=== PATIENT | male | born 1990 | race Caucasian/White ===

== ENCOUNTER 2017-09-01 12:42 | Emergency (ER) | payer BC, OTHER ==
[~2017-09-01] VITALS: Ht 182.9 cm; Wt 91.0 kg
[~2017-09-01 12:42] MED LIST: Z.0.NO CURRENT MEDS
[2017-09-01 12:48] VITALS: BP 176/73; PULSE 69; RESP 18; TEMP 98.6; O2SAT 97
--- NOTE | 2017-09-01 13:03 | PD ---
HPI Chief Complaint: Fall Time Seen by Provider: 12:45 Travel History International Travel<30 days: No Contact w/Intl Traveler<30days: No Traveled to known affect area: No History of Present Illness HPI 26-year-old male the presents to the ED for evaluation of fall from 8 feet. 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 Patient injured his right back. Ambulance was called and was brought here in backboard and cervical collar. He denies hitting his head or losing consciousness. No chest pain or shortness of breath but he does state that laughing and taking deep breaths causes pain on his back. Patient points to the right flank as they were most pain. Per patient the pain is 8 out of 10. No previous injuries. No back problems in the past. No back surgeries. No numbness, drooling, weakness. Denies take any blood thinners or any medications of any kind. Has no allergies to medication. Able to move the upper and lower extremities with no pain. Per patient the pain gets significant when he moves. No urinary or bowel movement issues. PFSH Past Medical History Medical History: Denies Significant Hx Immunizations Current: Yes Tetanus Vaccination: > 5 Years Past Surgical History Oral Surgery: Yes Social History Alcohol Use: Yes Tobacco Use: Yes Substance Use: No Allergies-Medications (Allergen,Severity, Reaction): Coded Allergies: No Known Allergies (Verified Allergy, Mild, 09/01/17) Reported Meds & Prescriptions Reported Meds & Active Scripts Active Diclofenac Sodium DR (Diclofenac Sodium) 75 Mg Tabdr 75 Mg PO BID PRN Robaxin (Methocarbamol) 500 Mg Tab 500 Mg PO TID Review of Systems Except as stated in HPI: all other systems reviewed are Neg Physical Exam Narrative GENERAL: SKIN: Warm and dry. HEAD: Atraumatic. Normocephalic. EYES: Pupils equal and round. No scleral icterus. No injection or drainage. ENT: No nasal bleeding or discharge. Mucous membranes pink and moist. Tongue is midline. No uvula deviation. NECK: Trachea midline. No JVD. CARDIOVASCULAR: Regular rate and rhythm. No murmurs, S3, S4. RESPIRATORY: No accessory muscle use. Clear to auscultation. Breath sounds equal bilaterally. GASTROINTESTINAL: Abdomen soft, non-tender, nondistended. Hepatic and splenic margins not palpable. MUSCULOSKELETAL: Extremities without clubbing, cyanosis, or edema. No obvious deformities. Full range of motion of the upper and lower extremities bilaterally with no pain. Straight leg test negative bilaterally. Patient does have reproducible pain on the musculature of the right flank around the CVA area. No obvious lumbar, thoracic, cervical spine tenderness to palpation. No obvious deformity noted on exam. No scapular pain. No hip pain. No ankle or knee pain noted. No obvious deformities noted at this time. Good pulses. No obvious lacerations noted. NEUROLOGICAL: Awake and alert. No obvious cranial nerve deficits. Motor grossly within normal limits. Five out of 5 muscle strength in the arms and legs. Normal speech. PSYCHIATRIC: Appropriate mood and affect; insight and judgment normal. Data Data Last Documented VS Vital Signs Date Time Temp Pulse Resp B/P (MAP) Pulse Ox O2 Delivery O2 Flow Rate FiO2 09/01/17 12:48 98.6 69 18 176/73 (107) [address] Thorax/ Chest W Iv Contrast (09/01/17 12:50) Ct Abd/Pel W Iv Contrast(Rout) (09/01/17 12:50) Ct Cerv Spine W/O Contrast (09/01/17 12:50) Basic Metabolic Panel (Bmp) (09/01/17 12:50) Iv Access Insert/Monitor (09/01/17 12:50) Ct Thor Spine W Iv Contrast (09/01/17 12:50) Morphine Inj (Morphine Inj) (09/01/17 14:30) Ondansetron Odt (Zofran Odt) (09/01/17 14:30) Iohexol 350 Inj (Omnipaque 350 Inj) (09/01/17 14:20) Ketorolac Inj (Toradol Inj) (09/01/17 14:45) Methocarbamol (Robaxin) (09/01/17 14:45) Remove Cervical Collar (09/01/17 14:56) Splint Or Brace Apply/Monitor (09/01/17 15:05) Ed Discharge Order (09/01/17 15:29) Labs Laboratory Tests Test 09/01/17 13:02 Blood Urea Nitrogen 14 MG/DL Creatinine 1.16 MG/DL Random Glucose 100 MG/DL Calcium Level 9.3 MG/DL Sodium Level 139 MEQ/L Potassium Level 4.3 MEQ/L Chloride Level 106 MEQ/L Carbon Dioxide Level 25.9 MEQ/L Anion Gap 7 MEQ/L Estimat Glomerular Filtration Rate 76 ML/MIN MDM Medical Decision Making Medical Screen Exam Complete: Yes Emergency Medical Condition: Yes Medical Record Reviewed: Yes Interpretation(s) Last Impressions Thoracic Spine CT 09/01/171249 Signed Impressions: CONCLUSION: No acute abnormality is seen. Chest CT 09/01/171249 Signed Impressions: CONCLUSION: Negative CT examination the chest. Cervical Spine CT 09/01/171249 Signed Impressions: CONCLUSION: Negative cervical spine CT examination. Abdomen/Pelvis CT 09/01/171249 Signed Impressions: CONCLUSION: 1. Mildly displaced fractures of the transverse processes on the right side at L2, L3 and L4. 2. No free fluid identified within the abdomen or pelvis. The solid organs of the abdomen are grossly intact. Differential Diagnosis Fall versus muscle strain versus muscle spasm versus contusion versus fracture versus internal injury Narrative Course 26-year-old male that presents to the ED for evaluation of fall. Patient was properly examined and was found to have signs and symptoms consistent with fall. Imaging was ordered. Imaging showed L2-L3 and L4 transverse processes fractures. I spoke with Dr. Negron over the phone who evaluated the imaging and recommends brace. He actually called me back and stated that he noticed a deformity of the pars of L5 and recommended that we call radiology to see if this is old or new. I spoke with radiology and they believe that this is likely old but they cannot completely rule out that is not new due to the new injuries the patient has. Because there is uncertainty patient will be put on the TLSO I will have to follow-up outpatient with neurosurgery. This is Worker' s Comp. I fill out the paperwork for the Worker's Comp. Patient was told that he will have to follow-up closely with the neurosurgeon as well as his employmed. Follow-up with PCP. See ED if worsening symptoms. I have offered pain medication to the patient but he declines narcotics here in the ED. My attending Dr Cross evaluated the patient and agrees with discharge. This was discussed with family who agree with this. Diagnosis Primary Impression: Multiple transverse process fractures Additional Impression: Fall Qualified Codes: W19.XXXA - Unspecified fall, initial encounter Referrals: Francisco Negron MD Patient Instructions: General Instructions Departure Forms: Tests/Procedures, Work Release Enter return to work date: Sep 29, 2017 Additional Instructions: Take medications as prescribed. Follow-up with PCP. See ED for any worsening symptoms. Do not drink or drive while taking pain medication. Apply ice or heat as needed for pain Med/Other Pt SpecificInfo: Prescription(s) given Scripts Diclofenac Sodium DR (Diclofenac Sodium DR) 75 Mg Tabdr 75 MG PO BID Y for PAIN SCALE 1 TO 10, #30 TAB 0 Refills Prov: Karly Cross MD 09/01/17 Methocarbamol (Robaxin) 500 Mg Tab 500 MG PO TID for Muscle Spasm, #20 TAB 0 Refills Prov: Karly Cross MD 09/01/17 Disposition: 01 DISCHARGE HOME Condition: Stable Niko Boyle Sep 01, 2017 13:03
--- NOTE | 2017-09-01 13:11 | PD ---
Physical Exam Date Seen by Provider: Sep 01, 2017 Narrative This patient presents to us via [facility] following a fall. He fell approximately 8 feet. He was working in an attic. He struck his back on a [address] He comes in complaining with pain in that area. He is neurologically intact. Data Data Last Documented VS Vital Signs Date Time Temp Pulse Resp B/P (MAP) Pulse Ox O2 Delivery O2 Flow Rate FiO2 09/01/17 12:48 98.6 69 18 176/73 (107) [address] Thorax/ Chest W Iv Contrast (09/01/17 12:50) Ct Abd/Pel W Iv Contrast(Rout) (09/01/17 12:50) Ct Cerv Spine W/O Contrast (09/01/17 12:50) Basic Metabolic Panel (Bmp) (09/01/17 12:50) Iv Access Insert/Monitor (09/01/17 12:50) Ct Thor Spine W Iv Contrast (09/01/17 12:50) MDM Supervised Visit with KALIN: Yes Narrative Course I, Dr. Cross, have reviewed the advance practice practitioner's documentation and am in agreement, met with the patient face to face, made the diagnosis, and the medical decision making was done by me. *My assessment and Findings: Pleasant gentleman who does not appear to be in any acute distress at this time. He is lying flat on the stretcher. See Nydia Tinsley note for a more detailed H&P, final diagnosis and disposition Scripts No Active Prescriptions or Reported Meds Karly Cross MD Sep 01, 2017 13:11
[2017-09-01 13:46] LABS: BICARBONATE 25.9 MEQ/L (21.0-32.0); CALCIUM 9.3 MG/DL (8.5-10.1); CREATININE 1.16 MG/DL (0.60-1.30)
[2017-09-01] MEDS ORDERED: IOHEXOL 350 MG/ML 10 ML VIAL (for RAD DIAG) IVCONTRAST ONE (14:20)
[2017-09-01] MEDS ORDERED: MORPHINE SULFATE 4 MG/ML INJ IV PUSH ONE (14:30)
[2017-09-01] MEDS ORDERED: ONDANSETRON ODT 4 MG TAB PO ONE (14:30)
--- NOTE | 2017-09-01 14:42 | RADRPT ---
EXAM DATE: 09/01/2017 2:15 PM EDT AGE/SEX: 26 years / Male INDICATIONS: Fall from eight feet. CLINICAL DATA: This is the patient's initial encounter. Patient reports that signs and symptoms have been present for 1 day and indicates a pain score of 5/10. MEDICAL/SURGICAL HISTORY: None. None. RADIATION DOSE: 19.72 CTDI (mGy) COMPARISON: No prior exams available for comparison. TECHNIQUE: Contiguous axial images were obtained using helical multirow detector technique. The vol umetric data was post-processed with multiplanar reconstruction in oblique axial, sagittal, and coron al planes. Using automated exposure control and adjustment of the mA and/or kV according to patient s ize, radiation dose was kept as low as reasonably achievable to obtain optimal diagnostic quality marcel ges. DICOM format image data is available electronically for review and comparison. FINDINGS: Vertebrae: Normal vertebral body height. Alignment: Normal. No subluxation. C2-3: The bony spinal canal is normal in size. No evidence of disc bulge or herniation. The neural foramina are bilaterally patent. C3-4: The bony spinal canal is normal in size. No evidence of disc bulge or herniation. The neural foramina are bilaterally patent. C4-5: The bony spinal canal is normal in size. No evidence of disc bulge or herniation. The neural foramina are bilaterally patent. C5-6: The bony spinal canal is normal in size. No evidence of disc bulge or herniation. The neural foramina are bilaterally patent. C6-7: The bony spinal canal is normal in size. No evidence of disc bulge or herniation. The neural foramina are bilaterally patent. C7-T1: The bony spinal canal is normal in size. No evidence of disc bulge or herniation. The neura l foramina are bilaterally patent. CONCLUSION: Negative cervical spine CT examination. Electronically signed by: Sincere Galindo MD 09/01/2017 2:41 PM EDT
--- NOTE | 2017-09-01 14:44 | RADRPT ---
EXAM DATE: 09/01/2017 2:27 PM EDT AGE/SEX: 26 years / Male INDICATIONS: Fall from eight feet. CLINICAL DATA: This is the patient's initial encounter. Patient reports that signs and symptoms have been present for 1 day and indicates a pain score of 4/10. MEDICAL/SURGICAL HISTORY: None. None. RADIATION DOSE: 10.09 CTDI (mGy) ; Combined studies COMPARISON: No prior exams available for comparison. TECHNIQUE: Multiple contiguous axial images were obtained through the chest during bolus infusion of 96 ml Omnipaque 350 (iohexol) nonionic water-soluble contrast as a cumulative dose for multiple exa ms. Images were obtained in suspended respiration using multiple row detector helical technique. U sing automated exposure control and adjustment of the mA and/or kV according to patient size, radiati on dose was kept as low as reasonably achievable to obtain optimal diagnostic quality images. DICOM format image data is available electronically for review and comparison. FINDINGS: Lungs: The lungs are symmetrically aerated. No infiltrates or nodular densities are seen. Mediastinum: There is good visualization of the great vessels of the middle mediastinum. No evidenc e of mediastinal or hilar adenopathy/mass. Pleurae: No evidence of focal thickening or pleural effusion. Axillae: Unremarkable. Bony Structures: Unremarkable. Miscellaneous: The examination was extended to include the upper abdomen, and both adrenal glands ar e normal in size and configuration. CONCLUSION: Negative CT examination the chest. Electronically signed by: Sincere Galindo MD 09/01/2017 2:42 PM EDT
[2017-09-01] MEDS ORDERED: KETOROLAC TROMETHAMINE 30 MG/ML (IVP) VIAL IV PUSH ONE (14:45)
[2017-09-01] MEDS ORDERED: METHOCARBAMOL 500 MG TAB PO ONE (14:45)
--- NOTE | 2017-09-01 15:00 | RADRPT ---
EXAM DATE: 09/01/2017 2:47 PM EDT AGE/SEX: 26 years / Male INDICATIONS: Fall from eight feet. CLINICAL DATA: This is the patient's initial encounter. Patient reports that signs and symptoms have been present for 1 day and indicates a pain score of 4/10. MEDICAL/SURGICAL HISTORY: None. None. RADIATION DOSE: . CTDI (mGy) ; Reconstructed from previous dataset, no dose COMPARISON: No prior exams available for comparison. TECHNIQUE: Contiguous axial images were acquired using a multirow detector CT scanner after intraven ous administration of 96 ml Omnipaque 350 (iohexol) nonionic water-soluble contrast as a cumulative dose for multiple exams. Multiplanar reconstruction in the sagittal and coronal planes was performe d. Using automated exposure control and adjustment of the mA and/or kV according to patient size, ra diation dose was kept as low as reasonably achievable to obtain optimal diagnostic quality images. D ICOM format image data is available electronically for review and comparison. FINDINGS: Vertebrae: Normal vertebral body height. There does appear to be a prominent Schmorl's node at the a nterior superior aspect of T12. Alignment: Normal. No subluxation. Post Contrast: No abnormal areas of enhancement are seen in the cord, dural or paraspinal regions. T1 - T2: Normal. T2 - T3: The thecal sac has a normal diameter. No evidence of disc bulge or protrusion. T3 - T4: The thecal sac has a normal diameter. No evidence of disc bulge or protrusion. T4 - T5: The thecal sac has a normal diameter. No evidence of disc bulge or protrusion. T5 - T6: The thecal sac has a normal diameter. No evidence of disc bulge or protrusion. T6 - T7: The thecal sac has a normal diameter. No evidence of disc bulge or protrusion. T7 - T8: The thecal sac has a normal diameter. No evidence of disc bulge or protrusion. T8 - T9: The thecal sac has a normal diameter. No evidence of disc bulge or protrusion. T9 - T10: The thecal sac has a normal diameter. No evidence of disc bulge or protrusion. T10 - T11: The thecal sac has a normal diameter. No evidence of disc bulge or protrusion. T11 - T12: The thecal sac has a normal diameter. No evidence of disc bulge or protrusion. T12 - L1: The thecal sac has a normal diameter. No evidence of disc bulge or protrusion. CONCLUSION: No acute abnormality is seen. Electronically signed by: Sincere Galindo MD 09/01/2017 2:58 PM EDT
--- NOTE | 2017-09-01 15:01 | RADRPT ---
EXAM DATE: 09/01/2017 2:38 PM EDT AGE/SEX: 26 years / Male INDICATIONS: Fall from eight feet. CLINICAL DATA: This is the patient's initial encounter. Patient reports that signs and symptoms have been present for 1 day and indicates a pain score of 4/10. MEDICAL/SURGICAL HISTORY: None. None. ORAL CONTRAST: No oral contrast ingested. RADIATION DOSE: 10.09 CTDI (mGy) ; Combined studies COMPARISON: No prior exams available for comparison. TECHNIQUE: Multiple contiguous axial images were obtained through the abdomen and pelvis following b olus infusion of 96 ml Omnipaque 350 (iohexol) nonionic water-soluble contrast as a cumulative dose for multiple exams. No oral contrast ingested. Using automated exposure control and adjustment of t he mA and/or kV according to patient size, radiation dose was kept as low as reasonably achievable to obtain optimal diagnostic quality images. DICOM format image data is available electronically for r eview and comparison. FINDINGS: The visualized portion of lung base is clear. The appearance of the liver, spleen, pancreas, adrenal glands and kidneys is within normal limits. The abdominal aorta is normal in caliber. There is no retroperitoneal lymphadenopathy. There is no free air free fluid. The loops of small large bowel are unremarkable. The anterior abdomi nal wall is intact. There is no free fluid within the pelvis. No iliac or inguinal adenopathy is seen. Bone windowed imaging is provided. These demonstrate fracture of the transverse process of L2, L3 and L4. These are mildly displaced. The remainder the visualized bony structures are grossly intact. CONCLUSION: 1. Mildly displaced fractures of the transverse processes on the right side at L2, L3 and L4. 2. No free fluid identified within the abdomen or pelvis. The solid organs of the abdomen are grossl y intact. Electronically signed by: Bruno Mahmood MD 09/01/2017 3:00 PM EDT
[2017-09-01] MEDS ORDERED: DICL75TA PO (15:29)
[2017-09-01] MEDS ORDERED: ROBA500T PO (15:29)
== END 2017-09-01 17:39 | disposition home or self-care (01) ==
LOC: NEPE 12:42
DX: S32.029A Unspecified fracture of second lumbar vertebra, initial encounter for closed fracture (principal); S32.039A Unspecified fracture of third lumbar vertebra, initial encounter for closed fracture; S32.049A Unspecified fracture of fourth lumbar vertebra, initial encounter for closed fracture; Z72.0 Tobacco use; W17.89XA Other fall from one level to another, initial encounter; Y93.H3 Activity, building and construction; Y99.0 Civilian activity done for income or pay
CPT/HCPCS: 71260; 72125; 72129; 74177; 80048; 96374; 99284; J1885; L0200; L0484; Q9967